=== PATIENT | female | born 1980 | race Two or more races ===

== ENCOUNTER 2024-08-21 13:26 | Emergency (ER) | payer MEDICAID, SELFPAY ==
[2024-08-21 13:27] VITALS: BMI 24.5
[2024-08-21 14:02] VITALS: BP 139/74; PULSE 85; RESP 16; TEMP 37.1; O2SAT 99
--- NOTE | 2024-08-21 14:02 | XR_ITS ---
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 64 slice high-resolution scanner used. 3 mm axial sections have been obtained, post intravenous injection 60 cc [id number] 2-D sagittal, coronal reconstructions obtained. Low dose protocols were performed. One or more of the following dose reduction techniques were used; automated exposure control, adjustment of the mA and/or KV according to patient size, use of iterative reconstruction technique. Findings: No focal liver or splenic lesions No gallstones No pancreatic or adrenal mass No renal or ureteral calculi, no hydronephrosis Normal appendix No bowel obstruction Scattered colonic diverticulosis Anteverted uterus with no discrete uterine mass Septated partially cystic left ovarian mass 4.7 cm, please see the pelvic sonogram report 04/15/2024 Urinary bladder wall is thickened up to 3 mm Adequate bone density IMPRESSION: No renal or ureteral calculi, no hydronephrosis Normal appendix Septated partially cystic left ovarian mass 4.7 cm Mild thickening of the urinary bladder wall, consider cystitis
--- NOTE | 2024-08-21 14:03 | PD.EDABDPN ---
ED Abdominal Pain RME/HPI General Chief Complaint: Abdominal Pain Stated complaint: Right abdominal pain Time seen by provider: 08/21/24 13:58 Arrival date/time: 08/21/24 13:26 RME / HPI RME / HPI narrative: 43-year-old female patient came in for evaluation regarding right lower quadrant pain. Onset of symptoms for the last 3 days as worsening right lower quadrant pain radiating to the back, severity moderate associated with nausea. Patient denies any fever denies any diarrhea and constipation. Denies any dysuria frequency or hematuria. 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 Patient had dermoid cyst removal on the right last year by Dr. Walker. Related Data Previous Rx's ?Medication ?Instructions ?Recorded ibuprofen 600 mg tablet 600 mg PO Q6H PRN pain #30 tabs 03/23/24 ibuprofen 600 mg tablet 600 mg PO TID PRN pain #30 tabs 08/21/24 Allergies Allergy/AdvReac Type Severity Reaction Status Date / Time No Known Allergies Allergy Verified 04/15/24 11:32 Review of Systems Review of Systems Narrative Review of Systems: Review of system reviewed and within normal limits except mentioned in HPI ED Exam Narrative Physical exam: VITAL SIGNS: Reviewed. GENERAL APPEARANCE: Alert and interactive, follows commands, no acute distress, HEAD AND FACE: Non-traumatic. ENT: PERRL, pink conjunctivitis, eyelid no trauma, Mucous membrane moist. NECK: Supple, nontender, no nuchal rigidity. CHEST: No tenderness, no crepitus, no paradoxical movement, no retractions. LUNGS: Clear, well ventilated, symmetric, no rales, no wheezing, no ronchi, no stridor, good breath sounds bilaterally. HEART: Regular rate, regular rhythm, no murmur, no gallops. ABDOMEN: Soft, positive bowel sounds, nondistended, no guarding, right lower quadrant tenderness, no rebound, no masses, RECTAL: Deferred. GENITAL: Deferred. NEUROLOGICAL: Gross motor function intact sensory function intact, Appropriate for age. MUSCULOSKELETAL: low back nontender, full range of motion. EXTREMITIES: Nontender, full range of motion. SKIN: Color pink, dry, no rash, no lacerations, no abrasions, no contusions. LYMPHATICS: Deferred. Course Quality Measures none Orders Category Date Time Status CT Screening NOW Care 08/21/24 14:[address] abdomen pelvis w con Stat Exams 08/21/24 14:02 Completed CBC [CBC] Stat Lab 08/21/24 14:08 Completed CMP [Comprehensive Metabolic Panel] Stat Lab 08/21/24 14:08 Completed HCG Qualitative,Urine Stat Lab 08/21/24 14:02 Completed Lipase Stat Lab 08/21/24 14:08 Completed UA, C/S IF [Urinalysis, C/S if Indicated] Stat Lab 08/21/24 14:02 Completed Vital Signs Vital signs: Vital Signs Temperature 98.7 F 08/21/24 14:02 Pulse Rate 85 08/21/24 14:02 Respiratory Rate 16 08/21/24 14:02 Blood Pressure 139/74 H 08/21/24 14:02 Pulse Oximetry (%) 99 08/21/24 14:02 Oxygen Delivery Method Room Air 08/21/24 14:02 Abdominal Pain [facility] Narrative MDM Narrative:: 43-year-old female patient came in for evaluation regarding right lower quadrant pain. Onset of symptoms for the last 3 days as worsening right lower quadrant pain radiating to the back, severity moderate associated with nausea. Patient denies any fever denies any diarrhea and constipation. Denies any dysuria frequency or hematuria. 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 Patient had dermoid cyst removal on the right last year by Dr. Walker. Patient's workup came back normal. CT scan of the abdomen showed left septated ovarian cyst otherwise unremarkable no appendicitis. Results discussed with the patient. Advised her to follow-up again with Dr. Walker who did the surgery on her right ovarian cyst last year. Patient agrees with the plan. Patient appears nontoxic and hemodynamically stable. Patient discharged home and instructed to follow-up with primary care provider in 24 to 48 hours. Instructed to return to the emergency department immediately if worsening of symptoms Patient data External records reviewed:: None Clinical information provided by:: patient Social determinants that could affect healthcare access:: none Patient has the following chronic illnesses:: History of dermoid cyst on the right How is presenting disease/condition affected by chronic disease/condition?: exacerbated by Evaluation data The following diagnostics were reviewed and interpreted by me:: lab results and radiology exam(s) Lab and/or radiology exams considered but not ordered:: None Interpretation Summary: See results in MDM Medications / Prescriptions Medications or Prescriptions considered but not ordered:: None Medication administrations:: None Consultations Consultation(s) initiated? (list below): No Diagnosis Differential diagnosis abdominal pain: abdominal pain and small bowel obstruction Most likely diagnosis given after review of the tests above:: Abdominal pain, left ovarian cyst Admission Indicated Admission indicated?: not indicated Explain why admission is indicated or not indicated:: Stable Admission Request Was there a request for admission?: No Disposition Plan Disposition Plan: Discharge Discharge Attestation Discharge Attestation: The patient was given an opportunity to ask questions and understood the discharge instructions. Discharge instructions specifically effects, indications for sooner follow up or return to the emergency department, and the expected course of current diagnosis. Patient condition: Stable Discharge Plan Plan Patient Disposition: HOME (Self Care) Disposition Comment: stable Prescriptions/Referrals Prescriptions/Med Rec: New ibuprofen 600 mg tablet 600 mg PO TID PRN (Reason: pain) Qty: 30 0RF No Action ibuprofen 600 mg tablet 600 mg PO Q6H PRN (Reason: pain) Qty: 30 0RF Referrals: Cameron Eddy MD [Primary Care Provider] - In 1 week Problem List Clinical Impression: Abdominal pain, Ovarian cyst Patient/Caregiver Discharge Instructions Discharge Activity: activity as tolerated Education Materials: ED Ovarian Cyst Additional Instructions: Thank you for the opportunity for serving you today. You are stable for discharged . You are advised to: Follow-up with Dr. Walker, [employer], next week Return to ED for worsening of symptoms Increase oral fluids Take medication as prescribed Print Language: Swazi Stand Alone Forms: Santa Award Info., Patient Portal Info Letter GRANT/MALLORY Supervising Physician CHAPARRITA Supervising Physician: MD Leonor
[2024-08-21 14:30] LABS: Basophils % (Auto) 0 % (0-2.5); Eosinophils # (Auto) 0.1 Thou/mm3 (0.0-0.5); Eosinophils % (Auto) 2 % (0-10); Hematocrit 34.4 % (36.0-46.0); Hemoglobin 11.1 g/dL (12.0-16.0); Immature Granulocytes % (Auto) 0 % (0-0); Immature Granulocytes Auto 0.03 Thou/mm3 (0.00-0.00); Lymphocytes # (Auto) 1.6 Thou/mm3 (1.0-4.8); Lymphocytes % (Auto) 23 % (10-50); Mean Corpuscular HGB Conc 32.3 g/dl (31.0-37.0); Mean Corpuscular Hemoglobin 26.5 pg (25.0-35.0); Mean Corpuscular Volume 82 fL (80-100); Monocytes # (Auto) 0.3 Thou/mm3 (0.0-0.8); Monocytes % (Auto) 5 % (0-12); Neutrophils # (Auto) 4.9 Thou/mm3 (1.8-7.7); Neutrophils % (Auto) 70 % (37-80); Nucleated Red Blood Cell % 0 /100 WBC (0); Platelet Count 276 Thou/mm3 (140-440); RDW Standard Deviation 39.5 fL (36.4-46.3); Red Blood Count 4.19 Miln/mm3 (4.00-5.20)
[2024-08-21 14:51] LABS: Albumin, Serum 4.2 gm/dL (3.5-5.0); Albumin/Globulin Ratio 1.4 (1.2-2.2); Alkaline Phosphatase 67 U/L (46-116); Anion Gap 7 (7-16); Aspartate Amino Transferase < 8 U/L (0-34); BUN/Creatinine Ratio 12 Ratio (12-20); Bilirubin,Total 0.3 mg/dL (0.3-1.2); Blood Urea Nitrogen 7 mg/dL (9-23); Calcium 8.8 mg/dL (8.3-10.6); Calcium (Corrected) 8.8 mg/dL (8.5-10.1); Carbon Dioxide 27.3 mMol/L (20.0-31.0); Chloride 104 mMol/L (98-107); Creatinine (Component) 0.6 mg/dL (0.6-1.3); Estimated Creatinine Clearance 101.8 mL/min (>60); Glucose 83 mg/dL (74-106); Lipase 54 U/L (12-53); Osmolality,Calculated 272 (275-295); Potassium 3.4 mMol/L (3.4-5.1); Sodium 138 mMol/L (136-145); Total Protein 7.2 gm/dL (5.7-8.2); eGFR > 60 See Note
[2024-08-21 14:52] LABS: Bilirubin,Urine Negative (Negative); Blood,Urine 3+ (Negative); Clarity,Urine Turbid (Clear/Hazy); Collection Type, Urine Clean Catch; Culture Indicated,Urine Not Indicated; Glucose, Urine Negative (Negative); Ketones,Urine Negative (Negative); Leukocyte Esterase,Urine Positive (Negative); Nitrite,Urine Negative (Negative); PH,Urine 5.5 (5.0-7.0); Protein,Urine Trace (Neg - Trace); RBC,Urine 13 /hpf (0-3); Specific Gravity,Urine 1.024 (1.001-1.035); Squamous Epithelial Cell,Urine 25 /hpf (0-5); Urobilinogen,Urine Negative mg/dL (0.0-1.0); WBC,Urine 1 /hpf (0-5)
[2024-08-21 14:56] LABS: Alanine Aminotransferase 9 U/L (10-49)
[2024-08-21 15:00] LABS: Color,Urine Amber (Lt Yel-Yel)
[2024-08-21 15:20] LABS: HCG Qualitative,Urine Negative
== END 2024-08-21 20:42 | disposition home or self-care (01) ==
PROVIDERS: Nurse Practitioner Family; Emergency Provider Emergency Medicine; PCP Family Medicine
DX: D27.1 Benign neoplasm of left ovary (principal); R10.31 Right lower quadrant pain
CPT/HCPCS: 36415; 74177; 80053; 81001; 81025; 83690; 85025; 99285; A4649; Q9967

== ENCOUNTER 2024-10-11 19:38 | Emergency (ER) | payer MEDICAID, SELFPAY ==
[2024-10-11 19:40] VITALS: BMI 22.6
[2024-10-11 20:12] VITALS: BP 169/97; PULSE 85; RESP 18; TEMP 36.9; O2SAT 99
--- NOTE | 2024-10-11 20:55 | PD.EDRME ---
Rapid Medical Screening Exam RME Arrival date/time: 10/11/24 19:38 Chief Complaint: Urogenital-Female Time Seen by Provider: 10/11/24 20:41 Vital signs: Vital Signs Temperature 98.5 F 10/11/24 20:12 Pulse Rate 85 10/11/24 20:12 Respiratory Rate 18 10/11/24 20:12 Blood Pressure 169/97 H 10/11/24 20:12 Pulse Oximetry (%) 99 10/11/24 20:12 Oxygen Delivery Method Room Air 10/11/24 20:12 RME Narrative: 43-year-old female with past medical history of neoplasm of the right ovary presents with right lower quadrant pain x 2 weeks. She endorses nausea without emesis. She notes intermittent hematuria. Denies fever, chills, diarrhea. Patient does not have follow-up for neoplasm at this time.
--- NOTE | 2024-10-11 20:58 | XR_ITS ---
Examination: CT abdomen and pelvis without contrast. Coronal 3-D reconstructions. Sagittal 2-D reconstructions. Date and time of exam:October 11 at 2204 hrs. Comparison September 21, 2024 Indications: Upper abdominal pain beginning last night, history ovarian neoplasm CTDI: vol (mGy): 5.6 DLP: (mGycm): 280 Technique: Axial images of the abdomen have been obtained, 3 mm slice thickness Intravenous contrast material has not been administered. Low dose protocols were performed. One or more of the following dose reduction techniques were used; automated exposure control, adjustment of the mA and/or KV according to patient size, use of iterative reconstruction technique. Findings: No focal liver or splenic lesions No gallstones No pancreatic or adrenal mass No renal or ureteral calculi, no hydronephrosis Aorta normal size Normal appendix No bowel obstruction Colonic diverticulosis, no diverticulitis Anteverted uterus No adnexal mass Mild thickening urinary bladder wall up to 3 mm Intact osseous structures Impression: No renal or ureteral calculi, no hydronephrosis Normal appendix No bowel obstruction diverticulitis or free air Mild cystitis pattern
[2024-10-11 21:13] LABS: Collection Type, Urine Clean Catch
[2024-10-11 21:18] LABS: HCG Qualitative,Urine Negative
[2024-10-11 21:21] LABS: Bilirubin,Urine Negative (Negative); Blood,Urine 1+ (Negative); Clarity,Urine Clear (Clear/Hazy); Color,Urine Lt-Yellow (Lt Yel-Yel); Culture Indicated,Urine Not Indicated; Glucose, Urine Negative (Negative); Ketones,Urine Negative (Negative); Leukocyte Esterase,Urine Negative (Negative); Nitrite,Urine Negative (Negative); PH,Urine 6.5 (5.0-7.0); Protein,Urine Trace (Neg - Trace); RBC,Urine 12 /hpf (0-3); Specific Gravity,Urine 1.024 (1.001-1.035); Squamous Epithelial Cell,Urine 9 /hpf (0-5); Urobilinogen,Urine Negative mg/dL (0.0-1.0); WBC,Urine 2 /hpf (0-5)
[2024-10-11 21:33] LABS: Basophils # (Auto) 0.1 Thou/mm3 (0.0-0.2); Basophils % (Auto) 1 % (0-2.5); Eosinophils # (Auto) 0.4 Thou/mm3 (0.0-0.5); Eosinophils % (Auto) 4 % (0-10); Hematocrit 36.4 % (36.0-46.0); Hemoglobin 11.9 g/dL (12.0-16.0); Immature Granulocytes % (Auto) 0 % (0-0); Immature Granulocytes Auto 0.03 Thou/mm3 (0.00-0.00); Lymphocytes # (Auto) 2.7 Thou/mm3 (1.0-4.8); Lymphocytes % (Auto) 26 % (10-50); Mean Corpuscular HGB Conc 32.7 g/dl (31.0-37.0); Mean Corpuscular Hemoglobin 25.8 pg (25.0-35.0); Mean Corpuscular Volume 79 fL (80-100); Monocytes # (Auto) 0.7 Thou/mm3 (0.0-0.8); Monocytes % (Auto) 7 % (0-12); Neutrophils # (Auto) 6.4 Thou/mm3 (1.8-7.7); Neutrophils % (Auto) 62 % (37-80); Nucleated Red Blood Cell % 0 /100 WBC (0); Platelet Count 302 Thou/mm3 (140-440); RDW Standard Deviation 38.9 fL (36.4-46.3); Red Blood Count 4.61 Miln/mm3 (4.00-5.20); White Blood Count 10.4 Thou/mm3 (3.6-11.0)
[2024-10-11] MEDS: ACETAMINOPHEN 325 MG TABLET 650 MG PO (21:34)
[2024-10-11] MEDS: ONDANSETRON ODT 4 MG TABRAP PO (21:35)
[2024-10-11 21:47] LABS: Alanine Aminotransferase 14 U/L (10-49); Albumin, Serum 4.2 gm/dL (3.5-5.0); Albumin/Globulin Ratio 1.2 (1.2-2.2); Alkaline Phosphatase 79 U/L (46-116); Anion Gap 8 (7-16); Aspartate Amino Transferase 14 U/L (0-34); BUN/Creatinine Ratio 16 Ratio (12-20); Bilirubin,Total 0.3 mg/dL (0.3-1.2); Blood Urea Nitrogen 11 mg/dL (9-23); Calcium 8.9 mg/dL (8.3-10.6); Calcium (Corrected) 8.9 mg/dL (8.5-10.1); Chloride 103 mMol/L (98-107); Creatinine (Component) 0.7 mg/dL (0.6-1.3); Estimated Creatinine Clearance 79.8 mL/min (>60); Globulin 3.4 gm/dL (2.3-3.5); Glucose 94 mg/dL (74-106); Lipase 48 U/L (12-53); Osmolality,Calculated 275 (275-295); Potassium 3.9 mMol/L (3.4-5.1); Sodium 138 mMol/L (136-145); Total Protein 7.6 gm/dL (5.7-8.2); eGFR > 60 See Note
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
== END 2024-10-11 23:21 | disposition home or self-care (01) ==
PROVIDERS: Physician Assistant; Emergency Provider Emergency Medicine
DX: R10.32 Left lower quadrant pain (principal); R11.0 Nausea
CPT/HCPCS: 36415; 74176; 80053; 81001; 81025; 83690; 85025; 99284; Q0162; A9270

== ENCOUNTER 2024-10-25 11:22 | Emergency (ER) | payer MEDICAID, SELFPAY ==
[2024-10-25 11:25] VITALS: BP 136/95; PULSE 69; RESP 18; TEMP 36.9; O2SAT 100
--- NOTE | 2024-10-25 11:25 | XR_ITS ---
Examination: Transvaginal ultrasound of the pelvis, complete Technique: Transvaginal sonographic images pelvis performed using alonso scale imaging Exam date and time: October 25, 2024 1218 hours INDICATIONS: Pelvic pain beginning 5 hours ago, vaginal bleeding beginning 3 hours ago FINDINGS: Uterus 9.7 cm endometrial stripe 1.3 cm Small benign cervical cyst Right ovary obscured by bowel gas Left ovary 3.0 cm arterial flow 15 mm follicular cyst IMPRESSION: Limited study No uterine mass or intrauterine gestation.
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
[2024-10-25 11:40] LABS: Basophils # (Auto) 0.1 Thou/mm3 (0.0-0.2); Basophils % (Auto) 0 % (0-2.5); Eosinophils % (Auto) 0 % (0-10); Hemoglobin 13.1 g/dL (12.0-16.0); Immature Granulocytes % (Auto) 1 % (0-0); Immature Granulocytes Auto 0.12 Thou/mm3 (0.00-0.00); Lymphocytes # (Auto) 1.8 Thou/mm3 (1.0-4.8); Lymphocytes % (Auto) 7 % (10-50); Mean Corpuscular HGB Conc 32.8 g/dl (31.0-37.0); Mean Corpuscular Hemoglobin 25.8 pg (25.0-35.0); Mean Corpuscular Volume 79 fL (80-100); Monocytes # (Auto) 0.4 Thou/mm3 (0.0-0.8); Monocytes % (Auto) 2 % (0-12); Neutrophils # (Auto) 21.9 Thou/mm3 (1.8-7.7); Neutrophils % (Auto) 90 % (37-80); Nucleated Red Blood Cell % 0 /100 WBC (0); Platelet Count 312 Thou/mm3 (140-440); RDW Standard Deviation 40.8 fL (36.4-46.3); Red Blood Count 5.08 Miln/mm3 (4.00-5.20); White Blood Count 24.3 Thou/mm3 (3.6-11.0)
[2024-10-25 11:50] VITALS: PULSE 117; RESP 18; O2SAT 100
[2024-10-25 12:03] LABS: Alanine Aminotransferase 16 U/L (10-49); Albumin, Serum 4.7 gm/dL (3.5-5.0); Albumin/Globulin Ratio 1.3 (1.2-2.2); Alkaline Phosphatase 83 U/L (46-116); Anion Gap 15 (7-16); Aspartate Amino Transferase 19 U/L (0-34); BUN/Creatinine Ratio 15 Ratio (12-20); Beta HCG,Quantitative < 1 mIU/mL (<5.0); Bilirubin,Total 0.7 mg/dL (0.3-1.2); Blood Urea Nitrogen 12 mg/dL (9-23); Calcium 9.2 mg/dL (8.3-10.6); Calcium (Corrected) 9.2 mg/dL (8.5-10.1); Carbon Dioxide 17.4 mMol/L (20.0-31.0); Chloride 110 mMol/L (98-107); Creatinine (Component) 0.8 mg/dL (0.6-1.3); Globulin 3.6 gm/dL (2.3-3.5); Glucose 101 mg/dL (74-106); Osmolality,Calculated 282 (275-295); Sodium 142 mMol/L (136-145); Total Protein 8.3 gm/dL (5.7-8.2); eGFR > 60 See Note
--- NOTE | 2024-10-25 13:00 | XR_ITS ---
Examination: CT abdomen and pelvis without contrast. Coronal 3-D reconstructions. Sagittal 2-D reconstructions. Date and time of exam:October 25, 2024 1448 hours Comparison October 11, 2024 INDICATIONS: Abdominal pain with vaginal bleeding onset today CTDI: vol (mGy): 5.30 DLP: (mGycm): 285 Technique: Axial images of the abdomen have been obtained, 3 mm slice thickness Intravenous contrast material has not been administered. Low dose protocols were performed. One or more of the following dose reduction techniques were used; automated exposure control, adjustment of the mA and/or KV according to patient size, use of iterative reconstruction technique. Findings: No focal liver or splenic lesion No gallstones No pancreatic or adrenal mass. No renal or ureteral calculi, no hydronephrosis Aorta normal size Small lymph nodes in the right lower mesentery Normal appendix No bowel obstruction Moderate stool in the rectosigmoid Anteverted uterus Urinary bladder wall thickening at 2 5 mm No bladder mass IMPRESSION: No renal or ureteral calculi, no hydronephrosis Normal appendix No bowel obstruction diverticulitis or free air No pelvic mass
[2024-10-25 14:01] VITALS: BP 146/91; PULSE 100; RESP 20; TEMP 36.9; O2SAT 100
[2024-10-25 14:18] LABS: Collection Type, Urine Clean Catch
[2024-10-25 14:34] LABS: Bilirubin,Urine Negative (Negative); Blood,Urine 3+ (Negative); Clarity,Urine Turbid (Clear/Hazy); Color,Urine Yellow (Lt Yel-Yel); Glucose, Urine Negative (Negative); Ketones,Urine 4+ (Negative); Leukocyte Esterase,Urine Negative (Negative); Nitrite,Urine Negative (Negative); PH,Urine 5.5 (5.0-7.0); Protein,Urine 1+ (Neg - Trace); RBC,Urine 941 /hpf (0-3); Specific Gravity,Urine 1.024 (1.001-1.035); Squamous Epithelial Cell,Urine 1 /hpf (0-5); Urobilinogen,Urine Negative mg/dL (0.0-1.0); WBC,Urine 8 /hpf (0-5)
[2024-10-25 14:35] LABS: HCG Qualitative,Urine Negative
[2024-10-25] MEDS: ONDANSETRON ODT 4 MG TABRAP PO (16:23)
== END 2024-10-25 16:35 | disposition home or self-care (01) ==
PROVIDERS: Registered Nurse General Practice; Emergency Provider Emergency Medicine; PCP Physician Assistant
DX: N93.8 Other specified abnormal uterine and vaginal bleeding (principal); D72.829 Elevated white blood cell count, unspecified; R11.2 Nausea with vomiting, unspecified; R10.30 Lower abdominal pain, unspecified; R10.2 Pelvic and perineal pain
CPT/HCPCS: 36415; 74176; 76830; 80053; 81001; 81025; 84702; 85025; 86900; 86901; 99284; Q0162

== ENCOUNTER 2025-01-25 06:11 | Emergency (ER) | payer MEDICAID, SELFPAY ==
[2025-01-25 06:12] VITALS: BP 177/104; PULSE 91; RESP 18; TEMP 36.4; O2SAT 100
--- NOTE | 2025-01-25 06:13 | PD.EDCHEST ---
ED Chest Pain RME/HPI General Chief Complaint: Dizziness Stated Complaint: HEAD ACHE Time Seen by Provider: 01/25/25 06:16 Source: EMS Arrival date/time: 01/25/25 06:11 Mode of arrival: EMS RME / HPI RME / HPI narrative: Dr. Madrigal?s Main ED Evaluation: 44yo female with no significant past medical history JULIA from home presents to the ED for a chief complaint of chest pain. Patient states she was on the phone with someone when she got upset and started having chest pain and a headache. Patient reports associated N/V. Patient denies any fever, chills, abdominal pain, UTI symptoms or any other associated symptoms. NKA. Patient is on her menses. Related Data Previous Rx's ?Medication ?Instructions ?Recorded ibuprofen 600 mg tablet 600 mg PO Q6H PRN pain #30 tabs 03/23/24 ibuprofen 600 mg tablet 600 mg PO TID PRN pain #30 tabs 08/21/24 ondansetron 4 mg disintegrating 4 mg PO Q8H PRN nausea and 10/14/24 tablet vomiting #14 tabs ondansetron 4 mg disintegrating 4 mg PO Q8H #10 tabs 10/25/24 tablet Allergies Allergy/AdvReac Type Severity Reaction Status Date / Time No Known Allergies Allergy Verified 01/25/25 06:29 Review of Systems Review of Systems Systems Reviewed: All systems reviewed, normal except as documented Past Medical History Past Medical History NEUROLOGIC: Positive Neurological Disorders and Head Trauma; Negative Seizures CARDIAC: Negative Cardiac Disorders or Congestive Heart Failure RESPIRATORY: Negative Chronic Obstructive Pulmonary Disease (COPD) or Asthma GASTROINTESTINAL: Negative Gastrointestinal Disorders or Hepatitis GENITOURINARY: Negative Genitourinary Disorders or Renal Disease REPRODUCTIVE: Positive Previous Pregnancies MUSCULOSKELETAL: Negative Musculoskeletal Disorders ENT: Positive Head Trauma ENDOCRINE: Negative Endocrine Disorders, Diabetes Mellitus Type 1 or Diabetes Mellitus Type 2 HEMATOLOGIC: Negative Blood Disorders or Sickle Cell Disease OTHER HISTORY: Positive Hospitalization; Negative Autoimmune Disease, Shingles, Blood Transfusions, Anesthesia Reactions or Cancer Family History FAMILY HISTORY: Positive Family Cardiac Disorders, Family Cancer and Family Surgery; Negative Family Psychiatric Problems, Family Respiratory Disorders, Family Gastrointestinal Problems or Family Anesthesia Reaction Surgical History SURGICAL: Positive Tubal Ligation and Section Social History SMOKING STATUS: Never smoker ED Exam Narrative Physical exam: GEN. APPEARANCE: The patient is alert awake oriented X-3 in no distress, lying down comfortably, does not look ill/toxic. Patient has good eye contact. Patient is cooperative. VITALS: All vitals were reviewed and the pulse ox is % on room air which is normal according to my interpretation. HEENT: Normocephalic, atraumatic. Pupils are equal and reactive. Oral mucosa is moist. Patent Nares NECK: Supple, nontender, no thyromegaly, no meningismus, no JVD CHEST: Symmetrical, atraumatic, and with equal expansion , Nontender on palpation no deformity and no crepitus. CARDIOVASCULAR: Heart regular rhythm no murmur or gallop rub or extra beats. LUNGS: Clear to auscultation bilaterally with symmetrical chest rise. No laboring tachypnea or wheezing. No intercostal subcostal retraction. No rales and no rhonchi. ABDOMEN: Soft, flat, nontender to palpation, no guarding or rebound tenderness. There are no abnormal masses palpated. Active and normal bowel sounds. EXTREMITIES: Nontender. No edema. No cyanosis. Patient is able to move all 4 extremities well, with full ROM and good CSM. SKIN: Warm and dry, no jaundice or rashes noted. NEURO: Patient is [place] x 4, Cranial nerves II through XII grossly intact. There is no focal neurologic deficits noted. GCS is 15, PNS and ROOM SERVICE FOOD SERVICE ATTENDANT appear grossly intact. PSYCHIATRIC: Patient is in normal mood and affect. Course Course Course Narrative: CXR is ordered for determining the etiology of chest pain. Quality Measures none Orders Category Date Time Status EKG (ED ONLY) *Do not use* NOW Care 01/25/25 06:16 Completed CXR2 [XR chest 2V] Stat Exams 01/25/25 06:16 Completed EKG (ED Only) Stat Exams 01/25/25 06:16 Draft CBC Stat Lab 01/25/25 06:42 Completed CMP [Comprehensive Metabolic Panel] Stat Lab 01/25/25 06:42 Completed Troponin I Stat Lab 01/25/25 06:42 Completed UA, C/S IF [Urinalysis, C/S if Indicated] Stat Lab 01/25/25 07:04 Completed Aspirin Chew Med 01/25/25 06:16 Discontinued 81 mg PO X1 ONE Ondansetron Odt [Zofran Odt] Med 01/25/25 06:17 Discontinued 4 mg PO X1 ONE Vital Signs Vital signs: Vital Signs Temperature 97.6 F 01/25/25 06:12 Pulse Rate 91 01/25/25 06:12 Respiratory Rate 18 01/25/25 06:12 Blood Pressure 177/104 H 01/25/25 06:12 Pulse Oximetry (%) 100 01/25/25 06:12 Oxygen Delivery Method Room Air 01/25/25 06:12 Chest Pain MDM Narrative MDM Narrative:: Scribe Attestation: 01/25/25 - Teresa Shi am scribing for and in the presence of Dr. Madrigal. Patient presents with chest pain nausea and feeling unwell after having had a stressful conversation. Vital signs and exam as above. Concern for acute stress reaction, ACS arrhythmia electrolyte abnormality urinary tract infection among others. Ordered labs EKG chest x-ray offered medication for symptom relief Labs without acute hematologic or significant metabolic abnormality. Troponin not elevated, EKG without evidence of ischemia or arrhythmia. Urinalysis with gross blood however patient is not currently on her menstrual cycle. On reevaluation patient hemodynamically stable not distressed will discharge home with close return precautions follow-up with her primary care doctor. Patient data External records reviewed:: [facility] previous records (Per chart review, patient was seen here on 10/25/24 for leukocytosis. ) and EMS form Clinical information provided by:: patient Social determinants that could affect healthcare access:: none Patient has the following chronic illnesses:: none How is presenting disease/condition affected by chronic disease/condition?: no chronic disease Evaluation data The following diagnostics were reviewed and interpreted by me:: lab results, radiology exam(s) and EKG tracing(s) (01/25/2025 @ 06:46. Sinus rhythm, rate 75, nonspecific T-wave changes, normal intervals. ) Lab and/or radiology exams considered but not ordered:: none Interpretation Summary: Ordering Physician: Viktoriya Madrigal MD Date of Service: 01/25/25 Procedure(s): XR chest 2V Accession Number(s): [id number] cc: Rajinder Alonso MD; NO PRIMARY/FAMILY,PHYSICIAN; Viktoriya Madrigal MD~ Examination: PA lateral chest 2 views TECHNIQUE: Upright PA lateral chest 2 views Date and time: January 25, 2025, 0704 hours INDICATIONS: Chest pain today. FINDINGS: Normal heart size. Lungs are clear. The osseous structures are intact IMPRESSION: No active disease Dictated By: Rajinder Alonso MD Signed By: <Electronically signed by Rajinder Alonso MD in OV> 01/25/25 0751 Medications / Prescriptions Medications or Prescriptions considered but not ordered:: none Medication administrations:: Medication Administration History Discontinued Medications Aspirin (Aspirin 81 Mg Chew) 81 mg PO X1 ONE Stop: 01/25/25 06:17 Last Admin: 01/25/25 08:17 Dose: 81 mg Documented By: ARF Ondansetron HCl (Ondansetron Odt 4 Mg Tabrap) 4 mg PO X1 ONE; Protocol Stop: 01/25/25 06:18 Last Admin: 01/25/25 08:17 Dose: 4 mg Documented By: ARF see above Consultations Consultation(s) initiated? (list below): No Diagnosis Chest Pain Differential Diagnosis: chest pain Most likely diagnosis given after review of the tests above:: Acute stress reaction Admission Indicated Admission indicated?: not indicated Admission Request Was there a request for admission?: No Disposition Plan Disposition Plan: Discharge Discharge Attestation Discharge Attestation: The patient and all family members were given an opportunity to ask questions and understood the discharge instructions. Discharge instructions specifically effects, indications for sooner follow up or return to the emergency department, and the expected course of current diagnosis. Patient condition: Stable Discharge Plan Plan Patient Disposition: HOME (Self Care) Prescriptions/Referrals Prescriptions/Med Rec: No Action ibuprofen 600 mg tablet 600 mg PO TID PRN (Reason: pain) Qty: 30 0RF ondansetron 4 mg tablet,disintegrating 4 mg PO Q8H PRN (Reason: nausea and vomiting) Qty: 14 0RF ondansetron 4 mg tablet,disintegrating 4 mg PO Q8H Qty: 10 0RF ibuprofen 600 mg tablet 600 mg PO Q6H PRN (Reason: pain) Qty: 30 0RF Referrals: No Primary/Family,Physician [Primary Care Provider] - In 1 week Problem List Clinical Impression: Acute stress reaction Patient/Caregiver Discharge Instructions Education Materials: Stress Change Response Print Language: Jordanian Stand Alone Forms: Santa Award Info., Patient Portal Info Letter
--- NOTE | 2025-01-25 06:16 | XR_ITS ---
Examination: PA lateral chest 2 views TECHNIQUE: Upright PA lateral chest 2 views Date and time: January 25, 2025, 0704 hours INDICATIONS: Chest pain today. FINDINGS: Normal heart size. Lungs are clear. The osseous structures are intact IMPRESSION: No active disease
--- NOTE | 2025-01-25 06:16 | EKG_ITS ---
[facility] Test Date: 2025-01-25 Pat Name: KAYLIN WHEAT Department: Room: - Gender: Female Senior Commissions Analyst: : 1980 Requested By: Viktoriya Polanco Order Number: [id number] Reading MD: Viktoriya Polanco Measurements Intervals [place] Rate: 75 P: 50 IL: 145 QRS: 36 QRSD: 74 T: 8 QT: 397 QTc: 444 Interpretive Statements SINUS RHYTHM SEPTAL MYOCARDIAL INFARCTION , OF INDETERMINATE AGE [40+ ms Q WAVE IN V1/V2] Compared to ECG 09/29/2020 18:23:22 Myocardial infarct finding now present /store/S0/[id number].pdf
[2025-01-25 06:30] VITALS: PULSE 90; RESP 18; O2SAT 99
[2025-01-25 06:39] VITALS: BMI 20.6
[2025-01-25 06:59] LABS: Basophils # (Auto) 0.1 Thou/mm3 (0.0-0.2); Basophils % (Auto) 1 % (0-2.5); Eosinophils % (Auto) 0 % (0-10); Hematocrit 36.2 % (36.0-46.0); Hemoglobin 12.1 g/dL (12.0-16.0); Immature Granulocytes % (Auto) 0 % (0-0); Immature Granulocytes Auto 0.03 Thou/mm3 (0.00-0.00); Lymphocytes # (Auto) 1.7 Thou/mm3 (1.0-4.8); Lymphocytes % (Auto) 17 % (10-50); Mean Corpuscular HGB Conc 33.4 g/dl (31.0-37.0); Mean Corpuscular Hemoglobin 25.6 pg (25.0-35.0); Mean Corpuscular Volume 77 fL (80-100); Monocytes # (Auto) 0.4 Thou/mm3 (0.0-0.8); Monocytes % (Auto) 4 % (0-12); Neutrophils # (Auto) 7.8 Thou/mm3 (1.8-7.7); Neutrophils % (Auto) 78 % (37-80); Nucleated Red Blood Cell % 0 /100 WBC (0); Platelet Count 283 Thou/mm3 (140-440); RDW Standard Deviation 35.7 fL (36.4-46.3); Red Blood Count 4.73 Miln/mm3 (4.00-5.20)
[2025-01-25 07:12] LABS: Collection Type, Urine Clean Catch
[2025-01-25 07:12] LABS: Alanine Aminotransferase 17 U/L (10-49); Albumin, Serum 4.4 gm/dL (3.5-5.0); Albumin/Globulin Ratio 1.3 (1.2-2.2); Alkaline Phosphatase 79 U/L (46-116); Anion Gap 10 (7-16); Aspartate Amino Transferase 20 U/L (0-34); BUN/Creatinine Ratio 9 Ratio (12-20); Bilirubin,Total 0.4 mg/dL (0.3-1.2); Blood Urea Nitrogen 6 mg/dL (9-23); Calcium 8.6 mg/dL (8.3-10.6); Calcium (Corrected) 8.6 mg/dL (8.5-10.1); Carbon Dioxide 22.3 mMol/L (20.0-31.0); Chloride 106 mMol/L (98-107); Creatinine (Component) 0.7 mg/dL (0.6-1.3); Estimated Creatinine Clearance 90.3 mL/min (>60); Globulin 3.5 gm/dL (2.3-3.5); Glucose 109 mg/dL (74-106); Osmolality,Calculated 274 (275-295); Potassium 3.6 mMol/L (3.4-5.1); Sodium 138 mMol/L (136-145); Total Protein 7.9 gm/dL (5.7-8.2); Troponin I < 0.002 ng/mL (0.0-0.045); eGFR > 60 See Note
[2025-01-25 07:33] LABS: Bilirubin,Urine Negative (Negative); Blood,Urine 3+ (Negative); Budding Yeast,Urine Present; Glucose, Urine Negative (Negative); Ketones,Urine Trace (Negative); Leukocyte Esterase,Urine Negative (Negative); Nitrite,Urine Negative (Negative); PH,Urine 7.5 (5.0-7.0); Protein,Urine 3+ (Neg - Trace); Specific Gravity,Urine 1.019 (1.001-1.035); Squamous Epithelial Cell,Urine 213 /hpf (0-5); Urobilinogen,Urine Negative mg/dL (0.0-1.0)
[2025-01-25 07:42] LABS: Clarity,Urine Bloody (Clear/Hazy); Color,Urine Drk-Red (Lt Yel-Yel)
[2025-01-25 07:43] LABS: Culture Indicated,Urine Not Indicated; WBC,Urine 0 /hpf (0-5)
[2025-01-25] MEDS: ASPIRIN 81 MG CHEW PO (08:17)
[2025-01-25] MEDS: ONDANSETRON ODT 4 MG TABRAP PO (08:17)
== END 2025-01-25 08:22 | disposition home or self-care (01) ==
PROVIDERS: Emergency Provider Emergency Medicine
DX: F43.0 Acute stress reaction (principal); R07.9 Chest pain, unspecified; R94.31 Abnormal electrocardiogram [ECG] [EKG]
CPT/HCPCS: 36415; 71046; 80053; 81001; 84484; 85025; 93005; 99283; Q0162; A9270

== ENCOUNTER 2025-07-18 19:47 | Emergency (ER) | payer MEDICAID, SELFPAY ==
[2025-07-18 19:47] VITALS: BMI 22.8
[2025-07-18 20:08] VITALS: BP 221/114; PULSE 130; RESP 20; TEMP 36.8; O2SAT 100
--- NOTE | 2025-07-18 20:11 | XR_ITS ---
EXAMINATION: PA chest single view TECHNIQUE: Upright PA chest single view Date and time: July 18, 20252017 hours, comparison January 25, 2025 INDICATIONS: Chest pain today FINDINGS: Normal heart size Lungs are clear. The osseous rectors are intact IMPRESSION: No active disease
--- NOTE | 2025-07-18 20:11 | EKG_ITS ---
[facility] Test Date: 2025-07-18 Pat Name: KAYLIN WHEAT Department: Room: - Gender: Female Dietitian Consultant: : 1980 Requested By: Eduardo Pruitt Order Number: [id number] Reading MD: Eduardo Pruitt Measurements Intervals [place] Rate: 122 P: 68 SD: 104 QRS: 51 QRSD: 70 T: 36 QT: 304 QTc: 434 Interpretive Statements SINUS TACHYCARDIA WITH SHORT SD INTERVAL WITH OCCASIONAL VENTRICULAR PREMATURE COMPLEXES SEPTAL MYOCARDIAL INFARCTION , OF INDETERMINATE AGE [40+ ms Q WAVE IN V1/V2] Compared to ECG 01/25/2025 06:46:52 Ventricular premature complex(es) now present Short SD interval now present Sinus rhythm no longer present Myocardial infarct finding still present /store/S0/[id number].pdf
--- NOTE | 2025-07-18 20:11 | PD.EDRME ---
Rapid Medical Screening Exam RME Arrival date/time: 07/18/25 19:47 This is a case of 44-year-old female with history of hypertension came in in the emergency room due to chest pain and palpitation today with mild shortness of breath worsening of the symptoms this patient decided to sought consult here in the emergency room Chief Complaint: Chest Pain Time Seen by Provider: 07/18/25 19:58 Vital signs: Vital Signs Temperature 98.3 F 07/18/25 20:08 Pulse Rate 130 H 07/18/25 20:08 Respiratory Rate 20 07/18/25 20:08 Blood Pressure 221/114 H 07/18/25 20:08 Pulse Oximetry (%) 100 07/18/25 20:08 Oxygen Delivery Method Room Air 07/18/25 20:08 Exam: Patient is tachycardic heart rate 130 nontachypneic afebrile BP is elevated awake alert oriented x 4 no focal deficit GCS 15/15 steady gait clear breath Clinical Impression: Chest pain
[2025-07-18 20:33] LABS: Basophils # (Auto) 0.1 Thou/mm3 (0.0-0.2); Basophils % (Auto) 1 % (0-2.5); Eosinophils # (Auto) 0.0 Thou/mm3 (0.0-0.5); Eosinophils % (Auto) 0 % (0-10); Hematocrit 37.3 % (36.0-46.0); Hemoglobin 12.1 g/dL (12.0-16.0); Immature Granulocytes Auto 0.04 Thou/mm3 (0.00-0.00); Lymphocytes # (Auto) 1.4 Thou/mm3 (1.0-4.8); Lymphocytes % (Auto) 12 % (10-50); Mean Corpuscular HGB Conc 32.4 g/dl (31.0-37.0); Mean Corpuscular Hemoglobin 25.6 pg (25.0-35.0); Mean Corpuscular Volume 79 fL (80-100); Monocytes # (Auto) 0.7 Thou/mm3 (0.0-0.8); Monocytes % (Auto) 5 % (0-12); Neutrophils # (Auto) 10.1 Thou/mm3 (1.8-7.7); Neutrophils % (Auto) 82 % (37-80); Nucleated Red Blood Cell # 0.00 Thou/mm3 (0.00-0.00); Nucleated Red Blood Cell % 0 /100 WBC (0); Platelet Count 347 Thou/mm3 (140-440); RDW Standard Deviation 41.7 fL (36.4-46.3); Red Blood Count 4.72 Miln/mm3 (4.00-5.20); White Blood Count 12.3 Thou/mm3 (3.6-11.0)
[2025-07-18 21:00] LABS: Alanine Aminotransferase 24 U/L (10-49); Albumin, Serum 4.8 gm/dL (3.5-5.0); Albumin/Globulin Ratio 1.4 (1.2-2.2); Alkaline Phosphatase 77 U/L (46-116); Anion Gap 12 (7-16); Aspartate Amino Transferase 29 U/L (0-34); BUN/Creatinine Ratio 15 Ratio (12-20); Bilirubin,Total 0.9 mg/dL (0.3-1.2); Blood Urea Nitrogen 12 mg/dL (9-23); Calcium 8.9 mg/dL (8.3-10.6); Calcium (Corrected) 8.9 mg/dL (8.5-10.1); Carbon Dioxide 23.5 mMol/L (20.0-31.0); Chloride 101 mMol/L (98-107); Creatinine (Component) 0.8 mg/dL (0.6-1.3); Estimated Creatinine Clearance 65.8 mL/min (>60); Globulin 3.4 gm/dL (2.3-3.5); Glucose 110 mg/dL (74-106); Osmolality,Calculated 272 (275-295); Potassium 3.9 mMol/L (3.4-5.1); Sodium 136 mMol/L (136-145); Thyroid Stimulating Hormone 0.94 uIU/mL (0.55-4.78); Total Protein 8.2 gm/dL (5.7-8.2); Troponin I < 0.020 ng/mL (0.0-0.045); eGFR > 60 See Note
[2025-07-18 21:22] LABS: B-Type Natriuretic Peptide 24 pg/mL (0-100)
[2025-07-18 22:09] VITALS: BP 193/109; PULSE 111; RESP 16; TEMP 36.9; O2SAT 100
[2025-07-18 22:10] VITALS: BP 193/109; PULSE 111
[2025-07-18 23:15] VITALS: BP 193/109; PULSE 111
[2025-07-19 00:16] VITALS: BP 166/75; PULSE 129
[2025-07-19] MEDS: METOPROLOL TARTRATE 25 MG TABLET PO (00:16)
[2025-07-19 00:55] LABS: Collection Type, Urine Voided
[2025-07-19 01:00] LABS: HCG Qualitative,Urine Negative
[2025-07-19 01:02] LABS: Bilirubin,Urine Negative (Negative); Blood,Urine Negative (Negative); Clarity,Urine Clear (Clear/Hazy); Color,Urine Lt-Yellow (Lt Yel-Yel); Glucose, Urine Negative (Negative); Ketones,Urine 2+ (Negative); Leukocyte Esterase,Urine Negative (Negative); Nitrite,Urine Negative (Negative); PH,Urine 6.0 (5.0-7.0); Protein,Urine Negative (Neg - Trace); RBC,Urine 2 /hpf (0-3); Specific Gravity,Urine 1.012 (1.001-1.035); Squamous Epithelial Cell,Urine 1 /hpf (0-5); Urobilinogen,Urine Negative mg/dL (0.0-1.0); WBC,Urine < 1 /hpf (0-5)
[2025-07-19 01:23] VITALS: BP 153/98; PULSE 99
--- NOTE | 2025-07-19 01:26 | EDNOTE_ITS ---
ED Chest Pain RME/HPI General Chief Complaint: Chest Pain Stated Complaint: CHEST PAIN, FEELS SOB Time Seen by Provider: 07/18/25 19:58 Arrival date/time: 07/18/25 19:47 This is a case of 44-year-old female with history of hypertension noncompliant of her medication came in in the emergency room due to left anterior chest pain today associated with palpitation and mild shortness of breath patient denies any other symptoms Limitations: no limitations RME / HPI RME / HPI narrative: 07/18/25 19:47 This is a case of 44-year-old female with history of hypertension came in in the emergency room due to chest pain and palpitation today with mild shortness of breath worsening of the symptoms this patient decided to sought consult here in the emergency room Exam: Patient is tachycardic heart rate 130 nontachypneic afebrile BP is elevated awake alert oriented x 4 no focal deficit GCS 15/15 steady gait clear breath Impression: Chest pain Related Data Previous Rx's ?Medication ?Instructions ?Recorded ibuprofen 600 mg tablet 600 mg PO Q6H PRN pain #30 t abs 03/23/24 ibuprofen 600 mg tablet 600 mg PO TID PRN pain #30 t abs 08/21/24 ondansetron 4 mg disintegrating 4 mg PO Q8H PRN nausea and 10/14/24 tablet vomiting #14 tabs ondansetron 4 mg disintegrating 4 mg PO Q8H #10 tabs 0 10/25/24 tablet captopril 25 mg tablet 25 mg PO DAILY #30 tabs 06/29 09/22 Allergies Allergy/AdvReac Type Severity Reaction Status Date / Time No Known Allergies Allergy Verified 01/25/25 06:29 Review of Systems Review of Systems Systems Reviewed: All systems reviewed, normal except as documented Constitutional Constitutional: Reports system reviewed and no additional complaints, except as documented and Reports as per HPI Cardiovascular Cardiovascular: Reports system reviewed and no additional complaints, except as documented and Reports as per HPI Respiratory Respiratory: Reports system reviewed and no additional complaints, except as documented and Reports as per HPI Musculoskeletal Musculoskeletal: Reports system reviewed and no additional complaints, except as documented and Reports as per HPI Neurologic Neurologic: Reports system reviewed and no additional complaints, except as documented and Reports as per HPI Past Medical History Past Medical History NEUROLOGIC: Positive Neurological Disorders and Head Trauma; Negative Seizures CARDIAC: Negative Cardiac Disorders or Congestive Heart Failure RESPIRATORY: Negative Chronic Obstructive Pulmonary Disease (COPD) or Asthma GASTROINTESTINAL: Negative Gastrointestinal Disorders or Hepatitis GENITOURINARY: Negative Genitourinary Disorders or Renal Disease REPRODUCTIVE: Positive Previous Pregnancies MUSCULOSKELETAL: Negative Musculoskeletal Disorders ENT: Positive Head Trauma ENDOCRINE: Negative Endocrine Disorders, Diabetes Mellitus Type 1 or Diabetes Mellitus Type 2 HEMATOLOGIC: Negative Blood Disorders or Sickle Cell Disease OTHER HISTORY: Positive Hospitalization; Negative Autoimmune Disease, Shingles, Blood Transfusions, Anesthesia Reactions or Cancer Family History FAMILY HISTORY: Positive Family Cardiac Disorders, Family Cancer and Family Surgery; Negative Family Psychiatric Problems, Family Respiratory Disorders, Family G astrointestinal Problems or Family Anesthesia Reaction Surgical History SURGICAL: Positive Tubal Ligation and Section Social History SMOKING STATUS: Never smoker ED Exam General Limitations: Present no limitations General appearance: Present alert, in no apparent distress and other (Patient is awake alert oriented not in distress nontoxic looking well-hydrated well nourished) Head Head exam: Present atraumatic, normocephalic and normal inspection Eye Eye exam: Present normal appearance, PERRL and EOMI ENT ENT exam: Present normal exam, normal oropharynx, mucous membranes moist and other (HEENT exam is normal) Neck Neck exam: Present normal inspection, full ROM and trachea midline; Absent tenderness, meningismus, lymphadenopathy or thyromegaly Chest Chest inspection: Present normal inspection and symmetric chest wall rise; Absent tenderness Respiratory Respiratory exam: Present normal lung sounds bilaterally; Absent respiratory distress, wheezes, stridor, accessory muscle use or prolonged expiratory phase Cardiovascular Cardiovascular exam: Present regular rate, normal rhythm, normal heart sounds and other (No pitting edema); Absent bradycardia, tachycardia, irregular rhythm, systolic murmur or diastolic murmur Abdominal Exam Abdominal exam: Present soft and normal bowel sounds; Absent distention, tenderness, guarding, rebound, rigidity, diminished bowel sounds, hyperactive bowel sounds, hypoactive bowel sounds or organomegaly Extremities Exam Extremities exam: Present normal inspection and full ROM Back Exam Back exam: Present normal inspection and full ROM Neurological Exam Neurological exam: Present alert, oriented X3, CN II-XII intact, normal gait and reflexes normal; Absent motor sensory deficit Psychiatric Psychiatric exam: Present normal affect and normal mood Skin Skin exam: Present warm, dry, intact, normal color and other (Excellent skin turgor) Course Quality Measures none Orders Category Date Time Status EKG (ED ONLY) *Do not use* NOW Care 07/18/25 20:11 Completed EKG (ED Only) Stat Exams 07/18/25 20:11 Draft XR chest 1V Stat Exams 07/18/25 20:11 Completed BNP [B-Type Natriuretic Peptide] Stat Lab 07/18/25 20:26 Completed CBC Stat Lab 07/18/25 20:26 Completed CMP [Comprehensive Metabolic Panel] Stat Lab 07/18/25 20:26 Completed HCG Qualitative,Urine Stat Lab 07/19/25 00:40 Completed TSH [Thyroid Stimulating Hormone] Stat Lab 07/18/25 20:26 Completed Troponin I Stat Lab 07/18/25 20:26 Completed Urinalysis Stat Lab 07/19/25 00:40 Completed LORazepam [Ativan] Med 07/19/25 00:10 Discontinued 1 mg PO X1 ONE Metoprolol Tartrate [Lopressor] Med 07/19/25 00:10 Discontinued 25 mg PO X1 ONE cloNIDine HCL [Catapres] Med 07/18/25 20:11 Discontinued 0.2 mg PO X1 ONE hydrALAZINE HCL [Apresoline] Med 07/18/25 22:53 Discontinued 25 mg PO X1 ONE Vital Signs Vital signs: Vital Signs Temperature 98.3 F 07/18/25 20:08 Pulse Rate 130 H 07/18/25 20:08 Respiratory Rate 20 07/18/25 20:08 Blood Pressure 221/114 H 07/18/25 20:08 Pulse Oximetry (%) 100 07/18/25 20:08 Oxygen Delivery Method Room Air 07/18/25 20:08 Patient latest blood pressure is 153/98 patient is not tachycardic at heart rate of 99 patient oxygen saturation is 100% in room air no hypoxia Chest Pain MDM Narrative MDM Narrative:: This is a case of 44-year-old female with history of hypertension noncompliant of her medication came in in the emergency room due to left anterior chest pain today associated with palpitation and mild shortness of breath patient denies any other symptoms physical examination patient is awake alert oriented not in distress nontoxic looking well-hydrated well-nourished HEENT exam is normal and unremarkable negative meningeal sign lungs sound is clear equal no crackles no rales no retraction no stridor heart tachycardic normal rhythm no murmur no pitting edema the rest of the physical examination neurological exam is normal and unremarkable blood test showed no leukocytosis no anemia platelet is normal no electrolyte imbalance kidney and liver function is normal patient troponin is negative BNP is normal TSH is normal urinalysis normal no urinary tract EKG is sinus tach at heart rate [address] elevation no depression chest x-ray is normal patient blood pressure initially was 221 and 114 thus patient was given clonidine 0.2 mg p.o. after 30 minutes still blood pressures have thus patient was given hydralazine and metoprolol for heart rate of 122 patient is mildly anxious this patient was given Ativan patient continue to monitor here in the emergency room after 4 hours patient blood pressure went down to 153/98 and heart rate went down to 99 patient chest pain was resolved no palpitation no shortness of breath at this point patient will be discharged home in stable condition I do not think patient is having myocardial infarction nor pulmonary embolism patient will follow-up with PCP in 2 days for reevaluation and to be referred to radiosonde operator for further evaluation and treatment of chest pain and heart palpitation I also refilled his medication for blood pressure captopril she will continue to monitor her blood pressure for any worsening symptoms or any emergent concern return precaution in the ER is advised Patient was discharged with comfortable condition walking with stable gait. Patient verbalized no further complains explained diagnosis and answered patient question. Patient is comfortable with the proposed management plan including the need to follow up with his/her primary care physician and any specialist if applicable Discussed patient for any urgent condition or worsening sx, He/She needed to go to emergency room immediately or call 911. Patient acknowledge the responsibility to follow up as instructed and to monitor her/his symptoms. For any persistence of the symptoms for more than 3-5 days return precaution advised. Discussed the result of the test and was given printed discharge instruction Patient data External records reviewed:: [facility] previous records Clinical information provided by:: patient Social determinants that could affect healthcare access:: none Patient has the following chronic illnesses:: None How is presenting disease/condition affected by chronic disease/condition?: no chronic disease Evaluation data The following diagnostics were reviewed and interpreted by me:: lab results, radiology exam(s) and EKG tracing(s) Lab and/or radiology exams considered but not ordered:: Reviewed Interpretation Summary: Reviewed Medications / Prescriptions Medications or Prescriptions considered but not ordered:: Given Medication administrations:: Medication Administration History Discontinued Medications Clonidine (Clonidine Hcl 0.1 Mg Tablet) 0.2 mg PO X1 ONE Stop: 07/18/25 20:12 Last Admin: 07/18/25 22:10 Dose: 0.2 mg Documented By: BD Hydralazine HCl (Hydralazine Hcl 25 Mg Tablet) 25 mg PO X1 ONE Stop: 07/18/25 22:54 Last Admin: 07/18/25 23:15 Dose: 25 mg Documented By: OA Lorazepam (Lorazepam 0.5 Mg Tablet) 1 mg PO X1 ONE Stop: 07/19/25 00:11 Last Admin: 07/19/25 00:16 Dose: 1 mg Documented By: OA Metoprolol Tartrate (Metoprolol Tartrate 25 Mg Tablet) 25 mg PO X1 ONE Stop: 07/19/25 00:11 Last Admin: 07/19/25 00:16 Dose: 25 mg Documented By: OA Given Consultations Consultation(s) initiated? (list below): No Diagnosis Chest Pain Differential Diagnosis: atypical chest pain, costochondritis and chest pain Most likely diagnosis given after review of the tests above:: Chest pain of unknown etiology Admission Indicated Admission indicated?: not indicated Explain why admission is indicated or not indicated:: Not indicated Admission Request Was there a request for admission?: No Admission Attestation Admission request attestation: Not indicated Disposition Plan Disposition Plan: Discharge Discharge Attestation Discharge Attestation: The patient and all family members were given an opportunity to ask questions and understood the discharge instructions. Discharge instructions specifically effects, indications for sooner follow up or return to the emergency department, and the expected course of current diagnosis. Patient condition: Stable Discharge Plan Plan Patient Disposition: HOME (Self Care) Patient condition on transfer: Stable Prescriptions/Referrals Prescriptions/Med Rec: New captopril 25 mg tablet 25 mg PO DAILY Qty: 30 0RF No Action ibuprofen 600 mg tablet 600 mg PO TID PRN (Reason: pain) Qty: 30 0RF ondansetron 4 mg tablet,disintegrating 4 mg PO Q8H PRN (Reason: nausea and vomiting) Qty: 14 0RF ondansetron 4 mg tablet,disintegrating 4 mg PO Q8H Qty: 10 0RF ibuprofen 600 mg tablet 600 mg PO Q6H PRN (Reason: pain) Qty: 30 0RF Referrals: Taj Chisholm [Primary Care Provider] - In 1 week Problem List Clinical Impression: Chest pain of unknown etiology, Heart palpitations, Hypertension, uncontrolled Patient/Caregiver Discharge Instructions Education Materials: ED Chest Pain, Uncertain Cause, ED High Blood Pressure ..., ED Palpitations Additional Instructions: Follow-up with your primary care physician in 2 days for reevaluation and to be referred to radiosonde operator for further evaluation and treatment of chest pain and heart palpitation for possible echocardiogram stress test and Holter monitor he also need to be follow-up with your primary care physician to monitor your blood pressure and to review your medication for hypertension check your blood pressure twice a day and if your blood pressure greater than 160/100 or become symptomatic return to the emergency room immediately or call 911 low-fat low- salt low-cholesterol diet regular exercise is advised recurrence persistent worsening symptoms or any emergent concern call 911 or go to the nearest emergency room take your medication as directed Print Language: Turkish Stand Alone Forms: Santa Award Info., Patient Portal Info Letter PA/MALLORY Supervising Physician GRANT/MALLORY Supervising Physician: Dr. Ellis
== END 2025-07-19 01:33 | disposition home or self-care (01) ==
PROVIDERS: Nurse Practitioner Family; Emergency Provider Emergency Medicine; PCP Physician Assistant
DX: R00.2 Palpitations (principal); I10 Essential (primary) hypertension; R07.89 Other chest pain; R00.0 Tachycardia, unspecified; I49.3 Ventricular premature depolarization
CPT/HCPCS: 36415; 71045; 80053; 81001; 81025; 83880; 84443; 84484; 85025; 93005; 99283; A9270

== ENCOUNTER 2025-07-24 13:08 | Emergency (ER) | payer MEDICAID, SELFPAY ==
[2025-07-24 13:09] VITALS: BMI 22.6
[2025-07-24 14:17] VITALS: BP 146/99; PULSE 106; RESP 18; TEMP 36.8; O2SAT 99
--- NOTE | 2025-07-24 14:46 | EDNOTE_ITS ---
ED Female Urogenital RME/HPI General Chief complaint: Urogenital-Female Stated complaint: MID LOWER ABD PAIN X1 DAY Time Seen by Provider: 07/24/25 13:56 Arrival date/time: 07/24/25 13:08 This is a 44-year-old female that comes into the emergency room with complaints of lower abdominal pain for the last day. Patient reports of dysuria oliguria and urinary frequency and urgency. Patient states symptoms started yesterday. Patient does not remember the last time she had a menstrual cycle. Patient does have a history of high blood pressure in the past. Related Data Previous Rx's ?Medication ?Instructions ?Recorded ibuprofen 600 mg tablet 600 mg PO Q6H PRN pain #30 t abs 03/23/24 ibuprofen 600 mg tablet 600 mg PO TID PRN pain #30 t abs 08/21/24 ondansetron 4 mg disintegrating 4 mg PO Q8H PRN nausea and 10/14/24 tablet vomiting #14 tabs ondansetron 4 mg disintegrating 4 mg PO Q8H #10 tabs 0 10/25/24 tablet captopril 25 mg tablet 25 mg PO DAILY #30 tabs 06/29 09/22 ibuprofen 800 mg tablet 800 mg PO Q6H PRN pain #14 t abs 07/24/25 Allergies Allergy/AdvReac Type Severity Reaction Status Date / Time No Known Allergies Allergy Verified 07/24/25 13:10 Review of Systems Review of Systems Systems Reviewed: All systems reviewed, normal except as documented Past Medical History Past Medical History NEUROLOGIC: Positive Neurological Disorders and Head Trauma; Negative Seizures CARDIAC: Negative Cardiac Disorders or Congestive Heart Failure RESPIRATORY: Negative Chronic Obstructive Pulmonary Disease (COPD) or Asthma GASTROINTESTINAL: Negative Gastrointestinal Disorders or Hepatitis GENITOURINARY: Negative Genitourinary Disorders or Renal Disease REPRODUCTIVE: Positive Previous Pregnancies MUSCULOSKELETAL: Negative Musculoskeletal Disorders ENT: Positive Head Trauma ENDOCRINE: Negative Endocrine Disorders, Diabetes Mellitus Type 1 or Diabetes Mellitus Type 2 HEMATOLOGIC: Negative Blood Disorders or Sickle Cell Disease OTHER HISTORY: Positive Hospitalization; Negative Autoimmune Disease, Shingles, Blood Transfusions, Anesthesia Reactions or Cancer Family History FAMILY HISTORY: Positive Family Cardiac Disorders, Family Cancer and Family Surgery; Negative Family Psychiatric Problems, Family Respiratory Disorders, Family Gastrointestinal Problems or Family Anesthesia Reaction Surgical History SURGICAL: Positive Tubal Ligation and Section Social History SMOKING STATUS: Never smoker ED Exam Narrative Physical exam: VITAL SIGNS: Reviewed. GENERAL APPEARANCE: Alert and interactive, follows commands, no acute distress, HEAD AND FACE: Non-traumatic. ENT: PERRL, conjuctiva pink and clear, eyelid no trauma, Mucous membrane moist. NECK: Supple, nontender, no nuchal rigidity. CHEST: No tenderness, no crepitus, no paradoxical movement, no retractions. LUNGS: Clear, well ventilated, symmetric, no rales, no wheezing, no rhonchi, no stridor, good breath sounds bilaterally. HEART: Regular rate, regular rhythm, no murmur, no gallops. ABDOMEN: Soft, nondistended, no pain to light palpation NEUROLOGICAL: Gross motor function intact sensory function intact, Appropriate for age. MUSCULOSKELETAL: low back nontender, full range of motion. EXTREMITIES: No redness no swelling no skin breakdown on bilateral foot and leg. Distal neurovascular status intact bilateral foot SKIN: Color pink, dry. Course Quality Measures none Orders Category Date Time Status CBC Stat Lab 07/24/25 15:10 Completed Comprehensive Metabolic Panel Stat Lab 07/24/25 15:10 Completed Lipase Stat Lab 07/24/25 15:10 Completed Urinalysis, C/S if Indicated Stat Lab 07/24/25 15:13 Completed Urine Culture Stat Lab 07/24/25 15:13 Completed Ibuprofen Tab [Motrin Tab] Med 07/24/25 18:01 Discontinued 800 mg PO X1 ONE Ondansetron Odt [Zofran Odt] Med 07/24/25 18:01 Discontinued 4 mg PO X1 ONE cefTRIAXone [Rocephin] 1,000 mg Med 07/24/25 18:01 Discontinued Lidocaine 1% Pf Vial 5ml [Xylocaine 1% Pf 5 ml] 2.1 ml IM X1 Vital Signs Vital signs: Vital Signs Temperature 98.2 F 07/24/25 14:17 Pulse Rate 106 H 07/24/25 14:17 Respiratory Rate 18 07/24/25 14:17 Blood Pressure 146/99 H 07/24/25 14:17 Pulse Oximetry (%) 99 07/24/25 14:17 Oxygen Delivery Method Room Air 07/24/25 14:17 Urogenital - Female MDM Narrative MDM Narrative:: Pt appears non toxic. Patient drinking soda and eating candy. Patient's labs reviewed white count is 15.4. Hemoglobin hematocrit are 12.8 and 40.2 BMP unremarkable ALT T is 52 mildly elevated otherwise AST alk phos and lipase are within normal limits UA shows RBCs WBCs leukocyte esterase and white blood cells. Will treat patient for UTI. Patient will be given a dose of Rocephin. And sent home with Cipro. Patient told to follow-up with primary provider in 1 to 2 days. Come back to the emergency room if symptoms change or worsen. Patient verbalized understanding feels comfortable plan of care. Pt has rbscs in urine likely from uti but told patient for continued pain may need further workup such as a CT scan for possible kidney stone. Patient verbalized understanding feels comfortable plan of care. Denies flank and back pain Dragon dictation: Although this document has been carefully reviewed, there may still be some phonetic and other typographical errors. These errors are purely grammatical due to imperfections in the software program and should not be construed in any way to compromise the substance of the patient's medical care during this visit. Patient data External records reviewed:: [facility] previous records Clinical information provided by:: patient Social determinants that could affect healthcare access:: none Patient has the following chronic illnesses:: None How is presenting disease/condition affected by chronic disease/condition?: no chronic disease Evaluation data The following diagnostics were reviewed and interpreted by me:: lab results Lab and/or radiology exams considered but not ordered:: None Interpretation Summary: see note Medications / Prescriptions Medications or Prescriptions considered but not ordered:: See note Medication administrations:: Medication Administration History Discontinued Medications Ceftriaxone Sodium 1,000 mg/ (Lidocaine HCl 2.1 ml) 0 mg IM X1 ONE Stop: 07/24/25 18:02 Last Admin: 07/24/25 18:33 Dose: 1,000 mg Documented By: Ibuprofen (Ibuprofen Tab 400 Mg Tablet) 800 mg PO X1 ONE Stop: 07/24/25 18:02 Last Admin: 07/24/25 18:33 Dose: 800 mg Documented By: Ondansetron HCl (Ondansetron Odt 4 Mg Tabrap) 4 mg PO X1 ONE; Protocol Stop: 07/24/25 18:02 Last Admin: 07/24/25 18:34 Dose: 4 mg Documented By: See MAR Consultations Consultation(s) initiated? (list below): No Diagnosis Urogenital Female Differential Diagnosis: urinary tract infection, vaginitis and other (Kidney stone) Most likely diagnosis given after review of the tests above:: See note Admission Indicated Admission indicated?: not indicated Admission Request Was there a request for admission?: No Disposition Plan Disposition Plan: Discharge Discharge Attestation Discharge Attestation: The patient and all family members were given an opportunity to ask questions and understood the discharge instructions. Discharge instructions specifically effects, indications for sooner follow up or return to the emergency department, and the expected course of current diagnosis. Patient condition: Stable Discharge Plan Plan Patient Disposition: HOME (Self Care) Patient condition on transfer: Stable Prescriptions/Referrals Prescriptions/Med Rec: New ibuprofen 800 mg tablet 800 mg PO Q6H PRN (Reason: pain) Qty: 14 0RF No Action ibuprofen 600 mg tablet 600 mg PO TID PRN (Reason: pain) Qty: 30 0RF ondansetron 4 mg tablet,disintegrating 4 mg PO Q8H PRN (Reason: nausea and vomiting) Qty: 14 0RF ondansetron 4 mg tablet,disintegrating 4 mg PO Q8H Qty: 10 0RF ibuprofen 600 mg tablet 600 mg PO Q6H PRN (Reason: pain) Qty: 30 0RF captopril 25 mg tablet 25 mg PO DAILY Qty: 30 0RF Referrals: Taj Chisholm [Primary Care Provider] - In 1 week Problem List Clinical Impression: Hematuria, UTI (urinary tract infection) Patient/Caregiver Discharge Instructions Discharge Activity: activity as tolerated Education Materials: ED Hematuria, ED CYSTITIS Female Adult Additional Instructions: Follow up with primary provider in 1-2 days. Come back to ED if symptoms change or worsen Print Language: Arabic Stand Alone Forms: Santa Award Info., Patient Portal Info Letter GRANT/MALLORY Supervising Physician CHAPARRITA Supervising Physician: sonam
[2025-07-24 15:20] LABS: Collection Type, Urine Voided
[2025-07-24 15:28] LABS: Basophils # (Auto) 0.1 Thou/mm3 (0.0-0.2); Basophils % (Auto) 0 % (0-2.5); Eosinophils # (Auto) 0.1 Thou/mm3 (0.0-0.5); Eosinophils % (Auto) 0 % (0-10); Hematocrit 40.2 % (36.0-46.0); Hemoglobin 12.8 g/dL (12.0-16.0); Immature Granulocytes Auto 0.06 Thou/mm3 (0.00-0.00); Lymphocytes # (Auto) 2.1 Thou/mm3 (1.0-4.8); Lymphocytes % (Auto) 14 % (10-50); Mean Corpuscular HGB Conc 31.8 g/dl (31.0-37.0); Mean Corpuscular Hemoglobin 25.3 pg (25.0-35.0); Mean Corpuscular Volume 80 fL (80-100); Monocytes # (Auto) 0.9 Thou/mm3 (0.0-0.8); Monocytes % (Auto) 6 % (0-12); Neutrophils # (Auto) 12.2 Thou/mm3 (1.8-7.7); Neutrophils % (Auto) 79 % (37-80); Nucleated Red Blood Cell # 0.00 Thou/mm3 (0.00-0.00); Nucleated Red Blood Cell % 0 /100 WBC (0); Platelet Count 352 Thou/mm3 (140-440); RDW Standard Deviation 41.8 fL (36.4-46.3); Red Blood Count 5.05 Miln/mm3 (4.00-5.20); White Blood Count 15.4 Thou/mm3 (3.6-11.0)
[2025-07-24 15:37] LABS: Alanine Aminotransferase 52 U/L (10-49); Albumin, Serum 4.5 gm/dL (3.5-5.0); Albumin/Globulin Ratio 1.3 (1.2-2.2); Alkaline Phosphatase 89 U/L (46-116); Anion Gap 10 (7-16); Aspartate Amino Transferase 26 U/L (0-34); BUN/Creatinine Ratio 13 Ratio (12-20); Bilirubin,Total 0.5 mg/dL (0.3-1.2); Blood Urea Nitrogen 10 mg/dL (9-23); Calcium 9.1 mg/dL (8.3-10.6); Calcium (Corrected) 9.1 mg/dL (8.5-10.1); Carbon Dioxide 27.9 mMol/L (20.0-31.0); Chloride 102 mMol/L (98-107); Creatinine (Component) 0.8 mg/dL (0.6-1.3); Estimated Creatinine Clearance 69.1 mL/min (>60); Globulin 3.4 gm/dL (2.3-3.5); Glucose 87 mg/dL (74-106); Lipase 46 U/L (12-53); Osmolality,Calculated 277 (275-295); Potassium 4.2 mMol/L (3.4-5.1); Sodium 140 mMol/L (136-145); Total Protein 7.9 gm/dL (5.7-8.2); eGFR > 60 See Note
[2025-07-24 15:52] LABS: Bilirubin,Urine Negative (Negative); Blood,Urine 3+ (Negative); Budding Yeast,Urine Present; Clarity,Urine Turbid (Clear/Hazy); Color,Urine Yellow (Lt Yel-Yel); Glucose, Urine Negative (Negative); Ketones,Urine Negative (Negative); Leukocyte Esterase,Urine Positive (Negative); Nitrite,Urine Negative (Negative); PH,Urine 6.0 (5.0-7.0); Protein,Urine 1+ (Neg - Trace); RBC,Urine 2059 /hpf (0-3); Specific Gravity,Urine 1.033 (1.001-1.035); Squamous Epithelial Cell,Urine 4 /hpf (0-5); Urobilinogen,Urine 2.0 mg/dL (0.0-1.0); WBC,Urine 522 /hpf (0-5)
[2025-07-24 16:16] LABS: Culture Indicated,Urine Yes
[2025-07-24] MEDS: IBUPROFEN TAB 400 MG TABLET 800 MG PO (18:33)
[2025-07-24] MEDS: ONDANSETRON ODT 4 MG TABRAP PO (18:34)
== END 2025-07-24 18:38 | disposition home or self-care (01) ==
PROVIDERS: Emergency Provider Nurse Practitioner Family; PCP Physician Assistant
DX: N39.0 Urinary tract infection, site not specified (principal); R31.9 Hematuria, unspecified; R11.2 Nausea with vomiting, unspecified
CPT/HCPCS: 36415; 80053; 81001; 83690; 85025; 87077; 87086; 87186; 96372; 99283; J0696; J3490; Q0162; A9270